=== PATIENT | male | born 1985 ===

== ENCOUNTER → 2017-03-16 | Outpatient (REF) | LOC: WSOH 13:55 | DX: Z00.00 Encounter for general adult medical examination without abnormal findings (principal) | CPT/HCPCS: G0463 ==

== ENCOUNTER → 2017-06-16 | Outpatient (REF) | LOC: WSOH 08:09 | DX: Z00.00 Encounter for general adult medical examination without abnormal findings (principal) ==

== ENCOUNTER → 2017-06-16 | Outpatient (REF) | LOC: WSOH 08:14 | DX: Z00.00 Encounter for general adult medical examination without abnormal findings (principal) ==